=== PATIENT | male | born 1985 | race Caucasian/White ===

== ENCOUNTER 2019-10-31 20:29 | Emergency (ER) | payer OTHER ==
[~2019-10-31] VITALS: Ht 198.1 cm; Wt 122.5 kg
== END 2019-10-31 21:04 | disposition home or self-care (01) ==
LOC: ED 20:29
DX: Z20.828 Contact with and (suspected) exposure to other viral communicable diseases (principal); F17.200 Nicotine dependence, unspecified, uncomplicated
CPT/HCPCS: 99282